=== PATIENT | male | born 1990 | race Caucasian/White ===

== ENCOUNTER 2020-03-26 10:30 | Emergency (ER) | payer SELFPAY ==
--- NOTE | 2020-03-26 11:12 | ER Document Report ---
ED Medical Screen (RME) - General Chief Complaint: Abdominal Pain Stated Complaint: ABDOMINAL PAIN,VOMITING,HEADACHE Time Seen by Provider: 03/26/20 11:03 - HPI Notes: 03/26/20 11:10 30-year-old male presents to the emergency room today with complaints of testicular pain and right and left pelvic pain for the last 2 weeks it has become progressively worse with bending over picking up objects. 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 Reports he has had 2 hernia repairs he believes on the left when he was incarcerated. Patient states he tried BC without relief, reports his last bowel movement was this morning, normal ROM and no melena. Patient reports that he does have some pain that shoots to his rectum as well. Denies any nausea vomiting diarrhea, chest pain or shortness of breath. Has not seen a primary care provider for this issue I have greeted and performed a rapid initial assessment of this patient. A comprehensive ED assessment and evaluation of the patient, analysis of test resu lts and completion of the medical decision making process will be conducted by additional ED providers. PHYSICAL EXAMINATION: abd: R and L inguinal tenderness, no hernias appreciated bilaterally. No CVA tenderness appreciated bilaterally Unable to do exam in PIT patient will need to be placed in a bed to check for any testicular issues Musculoskeletal: Normal range of motion NEUROLOGICAL: Normal speech, normal gait. SKIN: Warm, Dry, normal turgor, no rashes or lesions noted. - Related Data Allergies/Adverse Reactions: No Known Allergies Allergy (Verified 03/26/20 10:59) Physical Exam - Vital signs Vitals: Temp Pulse Resp BP Pulse Ox 98.1 F 100 16 118/74 96 03/26/20 10:47 03/26/20 10:47 03/26/20 10:47 03/26/20 10:47 03/26/20 10:47 Course - Vital Signs Vital signs: Temp Pulse Resp BP Pulse Ox 98.1 F 100 16 118/74 96 03/26/20 10:47 03/26/20 10:47 03/26/20 10:47 03/26/20 10:47 03/26/20 10:47
[2020-03-26 11:37] LABS: ABSOLUTE LYMPHOCYTES (AUTO) 2.2 10^3/uL (0.5-4.7); ABSOLUTE MONOCYTES (AUTO) 1.1 10^3/uL (0.1-1.4); ABSOLUTE NEUT (AUTO) 8.9 10^3/uL (1.7-8.2); BASOPHILS % (AUTO) 0.4 % (0-2); EOSINOPHILS % (AUTO) 0.2 % (0-6); HEMATOCRIT 48.8 % (37.9-51.0); HEMOGLOBIN 16.5 g/dL (13.5-17.0); LYMPHOCYTES % (AUTO) 17.9 % (13-45); MEAN CORPUSCULAR HEMOGLOBIN 31.4 pg (27.0-33.4); MEAN CORPUSCULAR HGB CONC 33.8 g/dL (32.0-36.0); MEAN CORPUSCULAR VOLUME 93 fl (80-97); MONOCYTES % (AUTO) 9.1 % (3-13); PLATELET COUNT 184 10^3/uL (150-450); RED BLOOD COUNT 5.25 10^6/uL (4.35-5.55); SEGMENTED NEUTROPHILS % (AUTO) 72.4 % (42-78); TOTAL CELLS COUNTED % (AUTO) 100 %; WHITE BLOOD COUNT 12.3 10^3/uL (4.0-10.5)
[2020-03-26 11:40] LABS: APPEARANCE,URINE CLEAR; BILIRUBIN,URINE NEGATIVE (NEGATIVE); COLOR,URINE YELLOW; GLUCOSE, URINE NEGATIVE (NEGATIVE); KETONES,URINE NEGATIVE (NEGATIVE); LEUKOCYTE ESTERASE,URINE NEGATIVE (NEGATIVE); NITRITE,URINE NEGATIVE (NEGATIVE); PROTEIN,URINE 30 mg/dL (NEGATIVE); URINE SPECIFIC GRAVITY 1.032
[2020-03-26 11:58] LABS: ALBUMIN 5.1 g/dL (3.5-5.0); ALKALINE PHOSPHATASE 74 U/L (38-126); ANION GAP 9 (5-19); ASPARTATE AMINO TRANSFERASE 50 U/L (17-59); BILIRUBIN,DIRECT 0.1 mg/dL (0.0-0.4); BILIRUBIN,TOTAL 1.2 mg/dL (0.2-1.3); BLOOD UREA NITROGEN 29 mg/dL (7-20); CALCIUM 10.3 mg/dL (8.4-10.2); CARBON DIOXIDE 30 mmol/L (22-30); CHLORIDE 99 mmol/L (98-107); GLUCOSE 93 mg/dL (75-110); POTASSIUM 4.4 mmol/L (3.6-5.0); TOTAL PROTEIN 8.5 g/dL (6.3-8.2)
--- NOTE | 2020-03-26 12:52 | ER Document Report ---
ED GI/ - General Chief Complaint: Lower Abdominal Pain Stated Complaint: ABDOMINAL PAIN,VOMITING,HEADACHE Time Seen by Provider: 03/26/20 11:03 Primary Care Provider: FLORENTIN MESSINA MD [ACTIVE STAFF] - Follow up in 3-5 days - [facility] Notes: 03/26/20 12:27 Patient is a 30-year-old male with a past medical history of mental health who presents with abdominal pain. Patient states that he has had abdominal pain for several days. It is worse when he lifts things. He states he has also felt nauseous. He states he has vomited several times the past 2 days. He denies any changes in bowel habits. He states his stool is normal. Patient states that intermittently for the past month he has had sharp rectal pain when he is walking. He sometimes has blood on the toilet paper when he wipes. He denies fevers or chills. No concern for STDs. He states he occasionally has pain radiating to his testicle. He denies any urinary symptoms. Patient had left inguinal hernia repair at age 13. - Related Data Allergies/Adverse Reactions: No Known Allergies Allergy (Verified 03/26/20 10:59) Home Medications: lithium 300mg PO BID Past Medical History - General Information source: Patient - Social History Smoking Status: Current Every Day Smoker Chew tobacco use (# tins/day): No Frequency of alcohol use: None Drug Abuse: Marijuana Family History: Reviewed & Not Pertinent Patient has homicidal ideation: No Review of Systems - Review of Systems Notes: CONSTITUTIONAL: No fever, fatigue or weight loss. SKIN: No rash. HENT: No congestion, ear pain, or sore throat. EYES: No recent vision problems or eye pain. ENDOCRINE: No thyroid problems. No polyuria or polydipsia. CARDIOVASCULAR: No chest pain or edema. RESPIRATORY: No cough, shortness of breath, congestion, or wheezing. GASTROINTESTINAL: Positive for right lower quadrant abdominal pain and nausea, vomiting. Negative for constipation or diarrhea. GENITOURINARY: No dysuria. MUSCULOSKELETAL: No joint pain or swelling. LYMPHATIC: No swollen glands. NEUROLOGIC: No seizures. Mild headache. HEMATOLOGIC: No unusual bruising or bleeding. PSYCHIATRIC: No depression or anxiety. Physical Exam - Vital signs Vitals: Temp Pulse Resp BP Pulse Ox 98.1 F 100 16 118/74 96 03/26/20 10:47 11/24/20 10:47 03/26/20 10:47 03/26/20 10:47 03/26/20 10:47 - General General appearance: Appears well Notes: VITAL SIGNS: Within normal limits. GENERAL: No acute distress, non-toxic appearance. HEAD: Normal with no signs of head trauma. EYES: EOMI, conjunctiva normal, no discharge. EARS: Hearing grossly intact. NOSE: Normal. NECK: Normal range of motion, no tenderness, supple, no lymphadenopathy, No adenopathy, no JVD. CHEST: Clear breath sounds bilaterally. No wheezes, rales, or rhonchi. CARDIAC: Regular rate and rhythm. S1 and S2, without murmurs, gallops, or rubs. VASCULAR: No Edema. ABDOMEN: Abdomen is soft. No rigidity or guarding. Discomfort to palpation of suprapubic area and right lower quadrant. GASTROINTESTINAL: Bowel sounds normal GENITOURINARY: Normal, No tenderness. Rectal exam and testicular exam performed with implementation specialist. No obvious hemorrhoids or fissures. Testicles are nontender with normal lie. MUSCULOSKELETAL: Good range of motion of all major joints. Extremities without clubbing, cyanosis or edema. NEUROLOGICAL: Alert and oriented x 3. No focal sensory or strength deficits. Speech normal. Follows commands appropriately. PSYCHIATRIC: Normal Affect, judgement and mood. SKIN: Normal appearance with no rashes or lesions. Course - Re-evaluation Re-evalutation: 03/26/20 12:31 Patient had testicular sono ordered from ultrasound. On my exam, he has some discomfort in the right lower quadrant. CT scan was negative for acute findings. Sono was also negative. I discussed all results with the patient. Possibly, this could be a muscle strain as he does lift heavy things at work. There is no evidence of hernias. Patient was given Toradol. He is very agreeable to the plan for follow-up. He was given strict return precautions. 03/26/20 21:19 - Vital Signs Vital signs: Temp Pulse Resp BP Pulse Ox 97.9 F 71 18 115/67 100 03/26/20 15:21 03/26/20 15:21 03/26/20 15:21 03/26/20 15:21 03/26/20 15:21 - Laboratory Result Diagrams: 03/26/20 11:24 03/26/20 11:24 Laboratory results interpreted by me: 03/26/20 03/26/20 03/26/20 11:24 11:24 11:24 WBC 12.3 H Absolute Neuts (auto) 8.9 H BUN 29 H Calcium 10.3 H ALT 69 H Total Protein 8.5 H Albumin 5.1 H Urine Protein 30 H Urine Urobilinogen 2.0 H - Diagnostic Test Radiology reviewed: Image reviewed, Reports reviewed Discharge - Discharge Clinical Impression: Abdominal pain Qualifiers: Abdominal location: lower abdomen, unspecified Qualified Code(s): R10.30 - L [facility] abdominal pain, unspecified Condition: Stable Disposition: HOME, SELF-CARE Instructions: Abdominal Pain ([facility]) Additional Instructions: Your work-up today is reassuring. Your CAT scan and ultrasound were normal. You may take Tylenol or ibuprofen as prescribed. Possibly this could be a musc le strain. Please follow-up with the family doctor provided. Please return to the ER immediately for any return or worsening of symptoms. Referrals: FLORENTIN MESSINA MD [ACTIVE STAFF] - Follow up in 3-5 days
--- NOTE | 2020-03-26 14:26 | RADIOLOGY REPORT (SQ) ---
EXAM DESCRIPTION: U/S SCROTUM W/DOPPLER IMAGES COMPLETED DATE/TIME: 03/26/2020 2:10 pm REASON FOR STUDY: testicular pain, hx of hernias (L) and (R) COMPARISON: None. TECHNIQUE: Static and realtime garcia scale imaging of the scrotum and testes. Selected color Doppler and spectral images recorded to document blood flow. LIMITATIONS: None. FINDINGS: RIGHT: TESTICLE: Normal size. Normal echotexture. Normal blood flow. No mass. EPIDIDYMIS: Normal. HYDROCELE OR VARICOCELE: No. HERNIA OR EXTRA-TESTICULAR MASS: No. OTHER: No other significant finding. LEFT: TESTICLE: Normal size. Normal echotexture. Normal blood flow. No mass. EPIDIDYMIS: Normal. HYDROCELE OR VARICOCELE: No. HERNIA OR EXTRA-TESTICULAR MASS: No. OTHER: No other significant finding. IMPRESSION: NORMAL SCROTAL ULTRASOUND. NO EVIDENCE OF TESTICULAR MASS OR TORSION. TECHNICAL DOCUMENTATION: JOB ID: [id number] 2010 [employer] All Rights Reserved Reading location - IP/workstation name: [email or web address]
[2020-03-26 14:33] LABS: CHLAM PCR NOT DETECTED (NOT DETECT)
--- NOTE | 2020-03-26 14:43 | RADIOLOGY REPORT (SQ) ---
EXAM DESCRIPTION: CT ABD/PELVIS WITH IV ONLY IMAGES COMPLETED DATE/TIME: 03/26/2020 2:30 pm REASON FOR STUDY: RLQ pain, vomiting COMPARISON: None. TECHNIQUE: CT scan of the abdomen and pelvis performed using helical scanning technique with dynamic intravenous contrast injection. No oral contrast. Images reviewed with lung, soft tissue, and bone windows. Reconstructed coronal and sagittal MPR images reviewed. Delayed images for evaluation of the urinary system also acquired. All images stored on PACS. All CT scanners at this facility use dose modulation, iterative reconstruction, and/or weight based d osing when appropriate to reduce radiation dose to as low as reasonably achievable (ALARA). [facility]: Dose Right [facility]: CareDose [facility]: Dose Right [facility]: Teradose 4D [facility]: [employer] CONTRAST TYPE AND DOSE: contrast/concentration: Isovue 350.00 mmol/ml; Total Contrast Delivered: 99. 0 ml; Total Saline Delivered: 61.0 ml RENAL FUNCTION: BUN 29; creatinine 1.1 RADIATION DOSE: CT Rad equipment meets quality standard of care and radiation dose reduction techniq ues were employed. CTDIvol: 11.2 - 16.0 mGy. DLP: 1667 mGy-cm.. LIMITATIONS: None. FINDINGS: LOWER CHEST: No significant findings. No nodules or infiltrates. LIVER: Normal size. No masses. No dilated ducts. SPLEEN: Normal size. No focal lesions. PANCREAS: No masses. No significant calcifications. No adjacent inflammation or peripancreatic fluid collections. Pancreatic duct not dilated. GALLBLADDER: No identified stones by CT criteria. No inflammatory changes to suggest cholecystitis. ADRENAL GLANDS: No significant masses or asymmetry. RIGHT KIDNEY AND URETER: No solid masses. No significant calcifications. No hydronephrosis or hyd roureter. LEFT KIDNEY AND URETER: No solid masses. No significant calcifications. No hydronephrosis or hydr oureter. AORTA AND VESSELS: No aneurysm. No dissection. Renal arteries, SMA, celiac without stenosis. RETROPERITONEUM: No retroperitoneal adenopathy, hemorrhage or masses. BOWEL AND PERITONEAL CAVITY: No masses or inflammatory changes. No free fluid or peritoneal masses. APPENDIX: Normal. PELVIS: No mass. No free fluid. Normal bladder. ABDOMINAL WALL: No masses. No hernias. BONES: No significant or acute findings. OTHER: No other significant finding. IMPRESSION: NO SIGNIFICANT OR ACUTE FINDING IN THE ABDOMEN OR PELVIS ON CT SCAN WITH IV CONTRAST. TECHNICAL DOCUMENTATION: JOB ID: [id number] Quality ID # [id number]: Final reports with documentation of one or more dose reduction techniques (e.g., Au tomated exposure control, adjustment of the mA and/or kV according to patient size, use of iterative reconstruction technique) 2010 [employer]- All Rights Reserved Reading location - IP/workstation name: [email or web address]
[2020-03-26] MEDS ORDERED: KETOROLAC TROMETHAMINE INJ/PF 30 MG/1 ML SDV IV ONE (14:56)
[2020-03-26 15:22] VITALS: BP 115/67
== END 2020-03-26 15:21 | disposition home or self-care (01) ==
LOC: ER 10:30
DX: R10.30 Lower abdominal pain, unspecified (principal); R51.9 Headache, unspecified; R11.0 Nausea; F17.200 Nicotine dependence, unspecified, uncomplicated
CPT/HCPCS: 99285; 96374; 36415; 85025; 80053; 81001; 87491; 87591; 76870; 93976; 74177; J1885